=== PATIENT | female | born 2000 ===

== ENCOUNTER 2024-06-22 06:06 | Day surgery (SDC) | payer OTHER ==
[2024-06-22] MEDS ORDERED: MIDAZOLAM HCL/PF 5 MG/ML VIAL IV ONE (08:30)
[2024-06-22] MEDS ORDERED: MEPERIDINE HCL/PF 50 MG/ML VIAL IV ONE (08:30)
[2024-06-22] MEDS ORDERED: DIPHENHYDRAMINE HCL 50 MG/ML VIAL 1ML IV SCH (08:30)
== END 2024-06-22 11:00 | disposition home or self-care (01) ==
LOC: AMB-ENDOS 06:06
PROVIDERS: ATTEND Surgery
DX: D13.1 Benign neoplasm of stomach (principal); K44.9 Diaphragmatic hernia without obstruction or gangrene